=== PATIENT | male | born 1935 | race African-American/Black ===

== ENCOUNTER 2016-03-23 18:56 | Inpatient (IN) | payer MEDICARE, MEDICAID ==
[2016-03-24] MEDS ORDERED: Albuterol Sulfate 2.5 mg/3 ml Neb NEB PRN (12:34)
[2016-03-24] MEDS ORDERED: Acetaminophen 650 MG Suppository PR PRN (12:34)
[2016-03-24] MEDS ORDERED: Bisacodyl 10 MG SUPP PR PRN (12:34)
[2016-03-24] MEDS: Timolol 0.5% Ophth Soln 5 ml Bottle EA EYE SCH (22:08)
[2016-03-24] MEDS: Latanoprost 0.005% Ophth Soln 2.5 ml Bottle EA EYE SCH (22:08)
[2016-03-24] MEDS: Vancomycin HCl 1 GM in Sodium Chloride 0.9% 250 ML 250 ML IVPB SCH (22:10)
[2016-03-25] MEDS: D5 1/4 NS w/20 mEq KCL 1,000 ML IV SCH ×2 (03:39→11:58)
[2016-03-25] MEDS: Enoxaparin Sodium 40 MG/0.4 ML SYRINGE SC SCH (05:46)
[2016-03-25] MEDS: cefTRIAXone\\ROCEPHIN 1 GM in Sodium Chloride 0.9% 100 ML IVPB SCH (08:26)
[2016-03-25] MEDS: Timolol 0.5% Ophth Soln 5 ml Bottle EA EYE SCH ×2 (08:27→21:15)
[2016-03-25] MEDS ORDERED: cefTRIAXone\\ROCEPHIN 1 GM VIAL IVPB SCH (09:00)
[2016-03-25] MEDS: Vancomycin HCl 1 GM in Sodium Chloride 0.9% 250 ML 250 ML IVPB SCH ×2 (11:56→22:56)
--- NOTE | 2016-03-25 19:29 | PRG ---
DATE OF PROGRESS NOTE: 03/25/2016 SUBJECTIVE: Nurses report the patient has remained unresponsive. OBJECTIVE: The patient lying in his bed. He would open his eyes when his name was called, he was m henry, but there was no attempt to talk. He did not turn toward the [place]. His vital signs show a t emperature of 97.7, pulse 66, blood pressure 184/80, earlier was 110/56, respirations 20, O2 sat 98% on room air. His output has been on 02/17/2016, over the last 24 hours. Lungs are clear. Heart r egular rate. Sacral wound still has a moderate amount of malodorous drainage of the overlying gauze , but drainage is not as gonzalez and just has a light yellow-brown tinge, the wound bed has a deep cent ral area that probably extends down to the sacral periosteum of the bone. Base of the wound is stil l a grayish mucus. ASSESSMENT: 1. Alteration in mental status where he is unresponsive. A. Suspect this is secondary to a combination of dehydration and urinary tract infection and possible wound infection to the decubitus. B. Patient will open his eye with tactile stimulation; otherwise unresponsive as of 03/25/2016. 2. Dehydration. A. Resolved with sodium now down to 143. B. Prerenal azotemia, resolved with a GFR of 90 as of 03/24/2016. C. Complicated by unresponsiveness. 1. The patient is beginning to open his eyes now with verbal or tactile stimuli as of 03/24. 3. Advanced Parkinson's disease. A. Complicated by severe dysphagia. B. Complicated by severe generalized weakness and stiffness such that he is bed confined, requi [facility] total care. 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 4. Hypertension. 5. Coronary heart disease. 6. Status post coronary artery bypass x4 in 2008. 7. Bradycardia requiring pacemaker. 8. Diverticular disease of the colon. 9. Benign prostatic hypertrophy. 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 11. Decubitus ulcer of the sacral area. A. Stage IV decubitus. B. Probable secondary infection that is improved as of 03/24/2016. C. Wound still has necrotic gonzalez base, but is very slowly improving with wet to dry dressing; s till has moderate amount of drainage and odor is still present. 12. Undisplaced fracture of the right humeral head. Unknown when this occurred. A. No local bruising around this fracture site and the patient does not indicate any pain with movement as of 03/24/2016. 13. Code status: DNR. 14. Urinary tract infection. A. Urine culture growing Escherichia coli, colony count greater than 100,000, organism resistan t to the Levaquin, but sensitive to ceftriaxone. B. Levaquin discontinued and Rocephin started on 03/23/2016. PLAN: We will continue the IV fluids. Continue present wound care. Continue the dextrose in the I V fluids. Patient is still unable to take any form of oral feeding. Family has been a post any ent eral feedings and the patient becomes a little more alert may be able to again give a swallowing tri al. Prognosis remains still very poor.
[2016-03-25] MEDS: Latanoprost 0.005% Ophth Soln 2.5 ml Bottle EA EYE SCH (21:14)
[2016-03-26] MEDS: Enoxaparin Sodium 40 MG/0.4 ML SYRINGE SC SCH (05:57)
[2016-03-26] MEDS: D5 1/4 NS w/20 mEq KCL 1,000 ML IV SCH ×3 (06:16→19:36)
[2016-03-26 07:21] LABS: Anion Gap 16 mmol/L (10-20); BUN (Urea Nitrogen) 7 mg/dL (8.4-25.7); Calc. Creatinine Clearance 77 mL/min (70-130); Calcium 8.2 mg/dL (7.8-10.44); Carbon Dioxide 20 mmol/L (23-31); Chloride 109 mmol/L (98-107); Estimated GFR-MDRD Greater than 90; Glucose 91 mg/dL (83-110); Sodium 141 mmol/L (136-145)
[2016-03-26 07:23] LABS: #Basophils 0.1 thou/uL (0.0-0.2); #Eosinphils 0.4 thou/uL (0.0-0.7); #Lymphocytes 1.5 thou/uL (1.20-3.40); #Monocytes 0.7 thou/uL (0.11-0.59); #Neutrophils 6.6 thou/uL (1.40-6.50); %Basophils 0.6 % (0.0-1.0); %Eosinophils 4.4 % (0.0-10.0); %Lymphocytes 16.6 % (21.0-51.0); %Monocytes 7.1 % (0.0-10.0); %Neutrophils 71.4 % (42.0-75.0); Hemoglobin 13.4 g/dL (14.0-18.0); Mean Corpuscular Hemoglobin 30.4 pg (27.0-31.0); Mean Corpuscular Volume 89.2 fl (80.0-94.0); Mean Platelet Volume 6.7 fL (7.4-10.4); Platelet Count 167 thou/uL (130-400); RBC Distribution Width 12.5 % (11.5-14.5); White Blood Cell (WBC) Count 9.2 thou/uL (4.8-10.8)
[2016-03-26] MEDS: cefTRIAXone\\ROCEPHIN 1 GM in Sodium Chloride 0.9% 100 ML IVPB SCH (08:11)
[2016-03-26] MEDS: Timolol 0.5% Ophth Soln 5 ml Bottle EA EYE SCH ×2 (08:12→20:35)
[2016-03-26] MEDS: Vancomycin HCl 1 GM in Sodium Chloride 0.9% 250 ML 250 ML IVPB SCH ×2 (10:34→22:41)
--- NOTE | 2016-03-26 14:52 | PRG ---
DATE OF SERVICE: 03/26/2016 SUBJECTIVE: Yesterday, the patient's IV infiltrated and multiple attempts to restart this were unsu ccessful, eventfully IV was obtained in the right external jugular and this has been running since connie bailey. OBJECTIVE: This morning the patient with stimulation, eyes open, and he seemed to be looking around , sucking around his left index finger. His vital signs shows a temperature of 97.8, pulse 60, bloo d pressure 144/65, respirations 18, O2 saturation 98% on room air. Lungs clear. Heart, regular rat e. Mouth: Mucous membranes are moist. Sacral wound is still malodorous. There is still a moderat e discharge from the wound that is a very light gonzalez discoloration on the floor by four hours, which the fluid was absorbed. The wound bed is a little spool cleaner. There is still malodorous. LABORATORY DATA: His lab shows an H\T\H of 13.4 and 39.3, white cell count 9200, 71% segs, 17% lymp hocytes, platelet count 167. Sodium 141, potassium 4, BUN 7, creatinine 0.71. GFR greater than 90, glucose 91. ASSESSMENT: 1. Alteration in mental status where he is unresponsive. A. Suspect this is secondary to a combination of dehydration and urinary tract infection and possible wound infection to the decubitus. B. Patient open his eyes and seems now sucking on his left index finger. He seems a little bit more responsive as of 03/26/2016. 2. Dehydration. A. Resolved with sodium now down to 143. B. Prerenal azotemia, resolved with a GFR of 90 as of 03/24/2016. C. Complicated by unresponsiveness. 1. Patient continues to open his eyes with tactile stimulation and places finger in his diego th as of 03/26/2016. 3. Advanced Parkinson's disease. A. Complicated by severe dysphagia. B. Complicated by severe generalized weakness and stiffness such that he is bed confined, requi ring total care. 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 4. Hypertension. 5. Coronary heart disease. 6. Status post coronary artery bypass x4 in 2008. 7. Bradycardia requiring pacemaker. 8. Diverticular disease of the colon. 9. Benign prostatic hypertrophy. 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 11. Decubitus ulcer of the sacral area. A. Stage IV decubitus. B. Probable secondary infection that is improved as of 03/24/2016. C. Wound beginning to clean up a little better, but still has a little malodorous and still has the gonzalez mucoid base, but less as of 03/26/2016. 12. Undisplaced fracture of the right humeral head. Unknown when this occurred. A. No local bruising around this fracture site and the patient does not indicate any pain with movement as of 03/24/2016. 13. Code status: DNR. 14. Urinary tract infection. A. Urine culture growing Escherichia coli, colony count greater than 100,000, organism resistan t to the Levaquin, but sensitive to ceftriaxone. B. Levaquin discontinued and Rocephin started on 03/23/2016. PLAN: Continue the IV antibiotics. Continue present wound care. If patient continues become littl e more alert, we will have the speech therapist redo a swallow trial.
[2016-03-26] MEDS: Latanoprost 0.005% Ophth Soln 2.5 ml Bottle EA EYE SCH (20:30)
[2016-03-27] MEDS: Enoxaparin Sodium 40 MG/0.4 ML SYRINGE SC SCH (05:38)
[2016-03-27] MEDS: D5 1/4 NS w/20 mEq KCL 1,000 ML IV SCH ×3 (06:58→18:08)
[2016-03-27] MEDS: cefTRIAXone\\ROCEPHIN 1 GM in Sodium Chloride 0.9% 100 ML IVPB SCH (08:21)
[2016-03-27] MEDS: Timolol 0.5% Ophth Soln 5 ml Bottle EA EYE SCH ×2 (08:22→21:03)
[2016-03-27] MEDS: Vancomycin HCl 1 GM in Sodium Chloride 0.9% 250 ML 250 ML IVPB SCH ×2 (10:33→21:11)
--- NOTE | 2016-03-27 16:45 | PRG ---
DATE OF SERVICE: 03/27/2016 SUBJECTIVE: Speech Therapy reevaluated the patient yesterday and allowing a few ice chips. Nurses report no other problems. His IV in the right external jugular is still working well. OBJECTIVE: The patient is lying in bed. With tactile stimulation he opens his eyes. His temp is 9 7.8, pulse 60, respirations 18, O2 sat 95%, blood pressure 153/79. His lungs are clear. Heart, reg ular rate. Mouth; mucous membranes are moist. His sacral wound, the base still has a gonzalez mucoid t issue, but the surrounding tissue has cleaned up better. Overall, the wound looks a little better a nd there is less odor and drainage. ASSESSMENT: 1. Alteration in mental status where he is unresponsive. A. Suspect this is secondary to a combination of dehydration and urinary tract infection and possible wound infection to the decubitus. B. The patient will on open his eyes, and taking some ice chips as of 03/27/2016. 2. Dehydration. A. Resolved with sodium now down to 143. B. Prerenal azotemia, resolved with a GFR of 90 as of 03/24/2016. C. Complicated by unresponsiveness. 1. The patient continues to open his eyes with tactile stimulation. He has been started on ice chips as of 03/27/2016. 3. Advanced Parkinson's disease. A. Complicated by severe dysphagia. B. Complicated by severe generalized weakness and stiffness such that he is bed confined, requi ring total care. 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 4. Hypertension. 5. Coronary heart disease. 6. Status post coronary artery bypass x4 in 2008. 7. Bradycardia requiring pacemaker. 8. Diverticular disease of the colon. 9. Benign prostatic hypertrophy. 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 11. Decubitus ulcer of the sacral area. A. Stage IV decubitus. B. Probable secondary infection that is improved as of 03/24/2016. C. Wound has a little less odor, a little less drainage. Surrounding tissue is cleaning up mor e, still has gonzalez mucoid base as of 03/27/2016. 12. Undisplaced fracture of the right humeral head. Unknown when this occurred. A. No local bruising around this fracture site and the patient does not indicate any pain with movement as of 03/24/2016. 13. Code status: DNR. 14. Urinary tract infection. A. Urine culture growing Escherichia coli, colony count greater than 100,000, organism resistan t to the Levaquin, but sensitive to ceftriaxone. B. Levaquin discontinued and Rocephin started on 03/23/2016. PLAN: Continue present care. Hopefully, we will be able to advance substance by mouth. The family in the past have not wanted any type of enteral feeding. The patient's prognosis still remains juan c y poor, particularly since he is not getting adequate nutrition.
[2016-03-27] MEDS: Latanoprost 0.005% Ophth Soln 2.5 ml Bottle EA EYE SCH (21:10)
[2016-03-28] MEDS: D5 1/4 NS w/20 mEq KCL 1,000 ML IV SCH ×3 (00:43→20:32)
[2016-03-28 05:05] LABS: #Eosinphils 0.1 thou/uL (0.0-0.7); #Lymphocytes 0.8 thou/uL (1.20-3.40); #Monocytes 0.4 thou/uL (0.11-0.59); %Basophils 0.6 % (0.0-1.0); %Eosinophils 1.6 % (0.0-10.0); %Lymphocytes 12.7 % (21.0-51.0); %Monocytes 6.7 % (0.0-10.0); %Neutrophils 78.4 % (42.0-75.0); Hemoglobin 13.4 g/dL (14.0-18.0); Mean Corpuscular Hemoglobin 30.8 pg (27.0-31.0); Mean Corpuscular Volume 87.8 fl (80.0-94.0); Mean Platelet Volume 7.9 fL (7.4-10.4); Platelet Count 173 thou/uL (130-400); RBC Distribution Width 11.8 % (11.5-14.5); Red Blood Cell (RBC) Count 4.35 mill/uL (4.70-6.10); White Blood Cell (WBC) Count 6.3 thou/uL (4.8-10.8)
[2016-03-28] MEDS: Enoxaparin Sodium 40 MG/0.4 ML SYRINGE SC SCH (05:10)
[2016-03-28 05:23] LABS: Anion Gap 15 mmol/L (10-20); BUN (Urea Nitrogen) 3 mg/dL (8.4-25.7); Calc. Creatinine Clearance 86 mL/min (70-130); Calcium 8.5 mg/dL (7.8-10.44); Carbon Dioxide 22 mmol/L (23-31); Chloride 106 mmol/L (98-107); Estimated GFR-MDRD Greater than 90; Glucose 95 mg/dL (83-110); Potassium 3.5 mmol/L (3.5-5.1); Sodium 139 mmol/L (136-145)
[2016-03-28] MEDS: cefTRIAXone\\ROCEPHIN 1 GM in Sodium Chloride 0.9% 100 ML IVPB SCH (08:52)
[2016-03-28] MEDS: Timolol 0.5% Ophth Soln 5 ml Bottle EA EYE SCH ×2 (08:53→20:33)
[2016-03-28 10:25] LABS: Vancomycin, Trough 20.6 ug/mL
[2016-03-28] MEDS: Vancomycin HCl 1 GM in Sodium Chloride 0.9% 250 ML 250 ML IVPB SCH ×2 (10:57→21:58)
--- NOTE | 2016-03-28 15:28 | PRG ---
DATE OF SERVICE: 03/28/2016 SUBJECTIVE: The patient has taken a little bit of ice, but still the only response from him has bee n opening his eyes. Speech therapist will reevaluate for a swallowing screen, but I doubt that he w ill be able to progress beyond what he is doing at this time. OBJECTIVE: The patient lying in bed. When turned his eyes open. He appears comfortable. His kaylin l signs shows a temperature of 98.9, pulse 62, blood pressure was 181/77, earlier 153/79, respiratio ns 18, O2 sat 99% on room air. His lungs are clear. Heart, regular rate. The extremities have no edema. The sacral wound looks better. There is less drainage and the odor is resolving. The necro tic base is clean, there is one area that seems to extend a little deeper in the inferior aspect of the wound. The base of this had some red granulation tissue. This was probed with a Q-Tip and did not seem to tunnel any more than about 0.5 cm. This may have just been the base of the wound that i s gradually becoming more apparent as the gonzalez mucousy necrotic base is debriding. Lab shows an H\T \H of 13.4 and 38.2, WBC count 6300 with 78% segs, 13% lymphocytes, and platelet count of 173,000. Sodium 139, potassium 3.5, BUN 3, creatinine 0.65, glucose 95. ASSESSMENT: 1. Alteration in mental status where he is unresponsive. A. Suspect this is secondary to a combination of dehydration and urinary tract infection and possible wound infection to the decubitus. B. The patient will open his eyes with tactile stimulation as of 03/28/2016. 2. Dehydration. A. Resolved with sodium now down to 143. B. Prerenal azotemia, resolved with a GFR of 90 as of 03/24/2016. C. Complicated by unresponsiveness. 1. The patient will only open his eyes with tactile stimulation. He does take occasional i ce chips as of 03/28/2016. 3. Advanced Parkinson's disease. A. Complicated by severe dysphagia. B. Complicated by severe generalized weakness and stiffness such that he is bed confined, requi ring total care. 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 4. Hypertension. 5. Coronary heart disease. 6. Status post coronary artery bypass x4 in 2008. 7. Bradycardia requiring pacemaker. 8. Diverticular disease of the colon. 9. Benign prostatic hypertrophy. 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 11. Decubitus ulcer of the sacral area. A. Stage IV decubitus. B. Probable secondary infection that is improved as of 03/24/2016. C. The wound has less necrotic base and no surrounding redness and no odor, drainage less as of 03/28/2016. 12. Undisplaced fracture of the right humeral head. Unknown when this occurred. A. No local bruising around this fracture site and the patient does not indicate any pain with movement as of 03/24/2016. 13. Code status: DNR. 14. Urinary tract infection. A. Urine culture growing Escherichia coli, colony count greater than 100,000, organism resistan t to the Levaquin, but sensitive to ceftriaxone. B. Levaquin discontinued and Rocephin started on 03/23/2016. C. The patient is on day 5 of ceftriaxone as of 03/28/2015. PLAN: We will continue the IV Rocephin and vancomycin. We will recheck vancomycin trough level. C rosi present wound care. Will revisit with family about his inability to take oral feeding and a gain see what the family's wishes are in regards to enteral feeding. The patient's overall prognosi s still remains very poor, particularly with the severe dysphagia and minimal responsiveness.
[2016-03-28] MEDS: Latanoprost 0.005% Ophth Soln 2.5 ml Bottle EA EYE SCH (20:34)
[2016-03-29 05:16] LABS: #Eosinphils 0.2 thou/uL (0.0-0.7); #Lymphocytes 1.1 thou/uL (1.20-3.40); #Monocytes 0.7 thou/uL (0.11-0.59); %Basophils 0.5 % (0.0-1.0); %Eosinophils 1.7 % (0.0-10.0); %Lymphocytes 12.3 % (21.0-51.0); %Monocytes 7.5 % (0.0-10.0); Hemoglobin 14.1 g/dL (14.0-18.0); Mean Corpuscular HGB CONC 35.2 g/dL (32.0-36.0); Mean Platelet Volume 6.7 fL (7.4-10.4); Platelet Count 197 thou/uL (130-400); RBC Distribution Width 12.2 % (11.5-14.5); Red Blood Cell (RBC) Count 4.57 mill/uL (4.70-6.10)
[2016-03-29 05:23] LABS: Anion Gap 15 mmol/L (10-20); BUN (Urea Nitrogen) 3 mg/dL (8.4-25.7); Calc. Creatinine Clearance 79 mL/min (70-130); Calcium 8.6 mg/dL (7.8-10.44); Carbon Dioxide 24 mmol/L (23-31); Chloride 105 mmol/L (98-107); Estimated GFR-MDRD Greater than 90; Glucose 99 mg/dL (83-110); Potassium 3.7 mmol/L (3.5-5.1); Sodium 140 mmol/L (136-145)
[2016-03-29] MEDS: Enoxaparin Sodium 40 MG/0.4 ML SYRINGE SC SCH (05:36)
[2016-03-29] MEDS: cefTRIAXone\\ROCEPHIN 1 GM in Sodium Chloride 0.9% 100 ML IVPB SCH (08:44)
[2016-03-29] MEDS: Timolol 0.5% Ophth Soln 5 ml Bottle EA EYE SCH ×2 (08:45→20:18)
[2016-03-29] MEDS: Vancomycin HCl 1 GM in Sodium Chloride 0.9% 250 ML 250 ML IVPB SCH ×2 (10:14→22:24)
[2016-03-29] MEDS: D5 1/4 NS w/20 mEq KCL 1,000 ML IV SCH (10:14)
--- NOTE | 2016-03-29 14:45 | PRG ---
DATE OF SERVICE: 03/29/2016 SUBJECTIVE: Nurses said condition has been unchanged. OBJECTIVE: The patient is lying on his left side. His eyes are closed. He did not respond to any verbal or tactile stimuli. His vital signs shows a temperature 97.9, pulse 60, blood pressure 188/9 0, respirations 16, O2 sat 98%. Lungs are clear. Heart, regular rate. Wound, the nurses report no change. H\T\H 14.1 and 40.2, white blood cell count 9000 with 78% segs, 12% lymphocytes, platelet count of 197,000. Sodium 140, potassium 3.7, BUN to 3, creatinine 0.7, glucose 99. Vancomycin trou gh level is 20, which is appropriate. ASSESSMENT: 1. Alteration in mental status where he is unresponsive. A. Suspect this is secondary to a combination of dehydration and urinary tract infection and possible wound infection to the decubitus. B. Patient intermittently will open eyes with tactile stimulation, otherwise unresponsive as of 03/29/2016. 2. Dehydration. A. Resolved with sodium now down to 143. B. Prerenal azotemia, resolved with a GFR of 90 as of 03/24/2016. C. Complicated by unresponsiveness. 1. The patient will only open his eyes with tactile stimulation. He does take occasional i ce chips as of 03/29/2016. 3. Advanced Parkinson's disease. A. Complicated by severe dysphagia. B. Complicated by severe generalized weakness and stiffness such that he is bed confined, requi ring total care. 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 4. Hypertension. 5. Coronary heart disease. 6. Status post coronary artery bypass x4 in 2008. 7. Bradycardia requiring pacemaker. 8. Diverticular disease of the colon. 9. Benign prostatic hypertrophy. 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 11. Decubitus ulcer of the sacral area. A. Stage IV decubitus. B. Probable secondary infection that is improved as of 03/24/2016. C. The wound has less necrotic base and no surrounding redness and no odor, drainage less as of 03/28/2016, unchanged as of 03/29/2016. 12. Undisplaced fracture of the right humeral head. Unknown when this occurred. A. No local bruising around this fracture site and the patient does not indicate any pain with movement as of 03/24/2016. 13. Code status: DNR. 14. Urinary tract infection. A. Urine culture growing Escherichia coli, colony count greater than 100,000, organism resistan t to the Levaquin, but sensitive to ceftriaxone. B. Levaquin discontinued and Rocephin started on 03/23/2016. C. The patient is on 6th day of IV ceftriaxone. 15. Palliative Care as of 03/29/2016. PLAN: Yesterday, I had a long discussion with the patient's , Augusta and daughter Betty, abou t his condition and prognosis and had recommended comfort measures above all and consideration of ho spice care. The family asked many questions and then they visited with the son. Now this morning, both of them have revisited with me and said that they do not want any type of feeding tube used and they asked about palliative care as opposed to hospice care. They are very comfortable with comfor t measures and they realized that he may lose the IV and also they realized that he is not taking in nutrition orally. If his alertness improves any then he certainly can be offered again a trial of oral feeding, but at this point, it just would be too dangerous. The family is happy to have the pa tient remain here for continuation of the wound care and continuation of the IV antibiotics for the urinary tract infection and wound infection and realize that if the IV is lost that this will be sto pped and that his condition will deteriorate. The patient though will need to remain here for the c ontinued ongoing care and comfort measures. The patient will be under palliative care and prognosis is very poor.
[2016-03-29] MEDS: Latanoprost 0.005% Ophth Soln 2.5 ml Bottle EA EYE SCH (20:18)
[2016-03-30] MEDS: D5 1/4 NS w/20 mEq KCL 1,000 ML IV SCH ×3 (00:23→14:51)
[2016-03-30] MEDS: Enoxaparin Sodium 40 MG/0.4 ML SYRINGE SC SCH (05:24)
[2016-03-30] MEDS: cefTRIAXone\\ROCEPHIN 1 GM in Sodium Chloride 0.9% 100 ML IVPB SCH (08:53)
[2016-03-30] MEDS: Timolol 0.5% Ophth Soln 5 ml Bottle EA EYE SCH ×2 (08:54→21:07)
[2016-03-30] MEDS: Vancomycin HCl 1 GM in Sodium Chloride 0.9% 250 ML 250 ML IVPB SCH (11:21)
--- NOTE | 2016-03-30 18:32 | PRG ---
DATE OF SERVICE: 03/30/2016 SUBJECTIVE: Nurse report no change in patient. OBJECTIVE: On exam, patient opened his eyes when I called his name and his eyes turned toward me. I did not attempt to talk or move his extremities. His vital signs shows a temperature of 97.8; pul se 60; blood pressure 170/76, earlier 143/69; respirations 16; O2 sat 97%. Lungs are clear. Heart, regular rate. Neurologic, the patient open his eyes and looked toward me when his name was called, otherwise no movement in any of the extremities. The wound over the sacrum looks better about half of the gonzalez necrotic tissue is cleaned off of the base. There is minimal drainage and the odor is resolving. ASSESSMENT: 1. Alteration in mental status where he is unresponsive. A. Suspect this is secondary to a combination of dehydration and urinary tract infection and possible wound infection to the decubitus. B. The patient opens his eyes and look toward me when his name was called on the morning of . 2. Dehydration. A. Resolved with sodium now down to 143. B. Prerenal azotemia, resolved with a GFR of 90 as of 03/24/2016. C. Complicated by unresponsiveness. 1. The patient opens his eyes and look toward me when his name was called on the morning of 03/30/2016. 3. Advanced Parkinson's disease. A. Complicated by severe dysphagia. B. Complicated by severe generalized weakness and stiffness such that he is bed confined, requi ring total care. 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 4. Hypertension. 5. Coronary heart disease. 6. Status post coronary artery bypass x4 in 2008. 7. Bradycardia requiring pacemaker. 8. Diverticular disease of the colon. 9. Benign prostatic hypertrophy. 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 11. Decubitus ulcer of the sacral area. A. Stage IV decubitus. B. Probable secondary infection that is improved as of 03/24/2016. C. The necrotic base looks better and half of the base now is clean with minimal drainage and n o odor as of 03/30/2016. 12. Undisplaced fracture of the right humeral head. Unknown when this occurred. A. No local bruising around this fracture site and the patient does not indicate any pain with movement as of 03/24/2016. 13. Code status: DNR. 14. Urinary tract infection. A. Urine culture growing Escherichia coli, colony count greater than 100,000, organism resistan t to the Levaquin, but sensitive to ceftriaxone. B. Levaquin discontinued and Rocephin started on 03/23/2016. C. The patient is on 8th day of IV ceftriaxone as of 03/30/2016. 15. Palliative Care as of 03/29/2016. PLAN: We will complete a 10-day course of the ceftriaxone, which will complete in 2 days. We will stop the IV vancomycin. We will continue the IV fluids, continue comfort measures. Continue presen t wound care. We asked physical therapy to reevaluate patient for his ability to swallow. Prognosi s still extremely poor.
[2016-03-30] MEDS: Latanoprost 0.005% Ophth Soln 2.5 ml Bottle EA EYE SCH (21:07)
[2016-03-31] MEDS: D5 1/4 NS w/20 mEq KCL 1,000 ML IV SCH ×2 (04:06→16:53)
[2016-03-31] MEDS: Enoxaparin Sodium 40 MG/0.4 ML SYRINGE SC SCH (05:19)
[2016-03-31] MEDS: cefTRIAXone\\ROCEPHIN 1 GM in Sodium Chloride 0.9% 100 ML IVPB SCH (08:35)
[2016-03-31] MEDS: Timolol 0.5% Ophth Soln 5 ml Bottle EA EYE SCH ×2 (08:39→21:29)
--- NOTE | 2016-03-31 20:51 | PRG ---
DATE OF SERVICE: 03/31/2016 SUBJECTIVE: Nurses report no change in the patient. The patient's , Augusta, is with him this m orning. OBJECTIVE: The patient lying comfortably in bed. His eyes will open today. He did not look toward me. Otherwise, he unresponsive. His vital signs shows temperature of 98.1, pulse 66, blood pressu re 171/78, respirations 18, O2 sat 95% on room air. Lungs clear. Heart, regular rate. Wound repor costa unchanged. ASSESSMENT: 1. Alteration in mental status where he is unresponsive. A. Suspect this is secondary to a combination of dehydration and urinary tract infection and possible wound infection to the decubitus. B. The patient remains unresponsive except for opening of his eyes as of 03/30/2016. 2. Dehydration. A. Resolved with sodium now down to 143. B. Prerenal azotemia, resolved with a GFR of 90 as of 03/24/2016. C. Complicated by unresponsiveness. 1. The patient is unresponsive other than opening his eyes with verbal or tactile stimulati on as of 03/31/2016. 3. Advanced Parkinson's disease. A. Complicated by severe dysphagia. B. Complicated by severe generalized weakness and stiffness such that he is bed confined, requi ring total care. 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 4. Hypertension. 5. Coronary heart disease. 6. Status post coronary artery bypass x4 in 2008. 7. Bradycardia requiring pacemaker. 8. Diverticular disease of the colon. 9. Benign prostatic hypertrophy. 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 11. Decubitus ulcer of the sacral area. A. Stage IV decubitus. B. Probable secondary infection that is improved as of 03/24/2016. C. The necrotic base looks better and half of the base now is clean with minimal drainage and n o odor as of 03/30/2016. 12. Undisplaced fracture of the right humeral head. Unknown when this occurred. A. No local bruising around this fracture site and the patient does not indicate any pain with movement as of 03/24/2016. 13. Code status: DNR. 14. Urinary tract infection. A. Urine culture growing Escherichia coli, colony count greater than 100,000, organism resistan t to the Levaquin, but sensitive to ceftriaxone. B. Levaquin discontinued and Rocephin started on 03/23/2016. C. The patient is on 8th day of IV ceftriaxone as of 03/30/2016. 15. Palliative Care as of 03/29/2016. PLAN: Continue the IV antibiotics, Rocephin for the UTI. The patient is on his 9th of a 10 day cou rse as of 03/31/2016. Continue present wound care. Continue comfort measures. Prognosis remains s till very poor.
[2016-03-31] MEDS: Latanoprost 0.005% Ophth Soln 2.5 ml Bottle EA EYE SCH (21:29)
[2016-04-01] MEDS: D5 1/4 NS w/20 mEq KCL 1,000 ML IV SCH ×3 (05:35→21:30)
[2016-04-01] MEDS: Enoxaparin Sodium 40 MG/0.4 ML SYRINGE SC SCH (06:16)
[2016-04-01] MEDS: cefTRIAXone\\ROCEPHIN 1 GM in Sodium Chloride 0.9% 100 ML IVPB SCH (08:26)
[2016-04-01] MEDS: Timolol 0.5% Ophth Soln 5 ml Bottle EA EYE SCH ×2 (08:26→20:10)
[2016-04-01] MEDS: Latanoprost 0.005% Ophth Soln 2.5 ml Bottle EA EYE SCH (20:13)
[2016-04-02] MEDS: Enoxaparin Sodium 40 MG/0.4 ML SYRINGE SC SCH (05:12)
[2016-04-02 07:11] LABS: #Eosinphils 0.1 thou/uL (0.0-0.7); #Lymphocytes 1.2 thou/uL (1.20-3.40); #Monocytes 0.4 thou/uL (0.11-0.59); #Neutrophils 5.4 thou/uL (1.40-6.50); %Basophils 0.5 % (0.0-1.0); %Eosinophils 1.3 % (0.0-10.0); %Lymphocytes 16.6 % (21.0-51.0); %Monocytes 5.7 % (0.0-10.0); %Neutrophils 75.8 % (42.0-75.0); Hemoglobin 13.3 g/dL (14.0-18.0); Mean Corpuscular HGB CONC 34.5 g/dL (32.0-36.0); Mean Corpuscular Hemoglobin 30.4 pg (27.0-31.0); Mean Corpuscular Volume 88.2 fl (80.0-94.0); Mean Platelet Volume 6.4 fL (7.4-10.4); Platelet Count 215 thou/uL (130-400); RBC Distribution Width 11.9 % (11.5-14.5); Red Blood Cell (RBC) Count 4.35 mill/uL (4.70-6.10); White Blood Cell (WBC) Count 7.2 thou/uL (4.8-10.8)
[2016-04-02 07:29] LABS: Anion Gap 16 mmol/L (10-20); BUN (Urea Nitrogen) 4 mg/dL (8.4-25.7); Calc. Creatinine Clearance 79 mL/min (70-130); Calcium 8.8 mg/dL (7.8-10.44); Carbon Dioxide 22 mmol/L (23-31); Chloride 103 mmol/L (98-107); Estimated GFR-MDRD Greater than 90; Glucose 101 mg/dL (83-110); Potassium 3.7 mmol/L (3.5-5.1); Sodium 137 mmol/L (136-145)
[2016-04-02] MEDS: Timolol 0.5% Ophth Soln 5 ml Bottle EA EYE SCH ×2 (08:20→20:19)
[2016-04-02] MEDS: D5 1/4 NS w/20 mEq KCL 1,000 ML IV SCH ×2 (10:03→23:07)
--- NOTE | 2016-04-02 14:40 | PRG ---
DATE OF SERVICE: 04/02/2016 SUBJECTIVE: Nurses report no change in the patient. He still opens his eyes, occasionally yawns, b ut otherwise unresponsive. OBJECTIVE: The patient lying in his bed. His eyes are open, he appears comfortable in no distress. His temp is 98.9, pulse 60, respirations 16, O2 sat 95%, blood pressure 170/70. Lungs are clear. Heart, regular rate. Extremities, no edema. The wound over the sacrum has a little bit more drain age on the overlying gauze, there is just a mild odor. The wound bed is cleaning up better. There is no deep tunneling. There is some mild undermining. H\T\H 13.3 and 38.4, WBC count 7200 with 76% segs, 17% lymphocytes. Sodium 137, potassium 3.7, BUN 4, creatinine 0.71, glucose 101. ASSESSMENT: 1. Alteration in mental status where he is unresponsive. A. Suspect this is secondary to a combination of dehydration and urinary tract infection and possible wound infection to the decubitus. B. The patient remains unresponsive except for opening of his eyes as of 04/02/2016. 2. Dehydration. A. Resolved with sodium now down to 143. B. Prerenal azotemia, resolved with a GFR of 90 as of 03/24/2016. C. Complicated by unresponsiveness. 1. The patient is unresponsive other than opening his eyes with verbal or tactile stimulati on as of 04/02/2016. 3. Advanced Parkinson's disease. A. Complicated by severe dysphagia. B. Complicated by severe generalized weakness and stiffness such that he is bed confined, requi ring total care. 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 4. Hypertension. 5. Coronary heart disease. 6. Status post coronary artery bypass x4 in 2008. 7. Bradycardia requiring pacemaker. 8. Diverticular disease of the colon. 9. Benign prostatic hypertrophy. 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 11. Decubitus ulcer of the sacral area. A. Stage IV decubitus. B. Probable secondary infection that is improved as of 03/24/2016. C. The necrotic base continues to cleanup with the wet to dry dressing as of 04/02/2016. 12. Undisplaced fracture of the right humeral head. Unknown when this occurred. A. No local bruising around this fracture site and the patient does not indicate any pain with movement as of 03/24/2016. 13. Code status: DNR. 14. Urinary tract infection. A. Urine culture growing Escherichia coli, colony count greater than 100,000, organism resistan t to the Levaquin, but sensitive to ceftriaxone. B. Levaquin discontinued and Rocephin started on 03/23/2016. C. The patient has completed a 10 day course of IV ceftriaxone as of 04/01/2016. . 15. Palliative Care as of 03/29/2016. PLAN: The patient remains unresponsive other than opening his eyes and is not a candidate for any o ral feeding due to aspiration risk. His family does not want any type of enteral feeding including nasogastric and PEG feeding. We will continue the IV fluids with dextrose and continue comfort gabi ures and wound care. Will stop the IV Rocephin. Prognosis remains very poor. We will stop the Ally enox since the patient is under palliative care.
[2016-04-02] MEDS: Latanoprost 0.005% Ophth Soln 2.5 ml Bottle EA EYE SCH (20:18)
[2016-04-03] MEDS: Timolol 0.5% Ophth Soln 5 ml Bottle EA EYE SCH ×2 (08:19→20:08)
[2016-04-03] MEDS: D5 1/4 NS w/20 mEq KCL 1,000 ML IV SCH (11:45)
[2016-04-03] MEDS: Latanoprost 0.005% Ophth Soln 2.5 ml Bottle EA EYE SCH (20:08)
[2016-04-04] MEDS: D5 1/4 NS w/20 mEq KCL 1,000 ML IV SCH ×2 (00:52→14:15)
[2016-04-04] MEDS: Timolol 0.5% Ophth Soln 5 ml Bottle EA EYE SCH ×2 (08:29→20:40)
--- NOTE | 2016-04-04 10:45 | PRG ---
DATE OF SERVICE: 04/04/2016 SUBJECTIVE: The nurses said the patient was much more alert yesterday and also this morning. He campbell s not attempted to speak and does not moving any of his extremities. Wound Care has been going well . Wound is slowly improving. OBJECTIVE: The patient lying in bed, sitting upright at about 45 degrees. His eyes are open. He i s looking around. His vital signs show temperature 97.7, pulse 60, respirations 20, O2 saturation 9 7%, blood pressure 183/83. His lungs are clear. Heart, regular rate. Wound gradually improving. Extremities; no edema. ASSESSMENT: 1. Alteration in mental status where he is unresponsive. A. Suspect this is secondary to a combination of dehydration and urinary tract infection and possible wound infection to the decubitus. B. The patient's eyes are open. He is looking around, otherwise not responsive as of 04/04/2016 . 2. Dehydration. A. Resolved with sodium now down to 143. B. Prerenal azotemia, resolved with a GFR of 90 as of 03/24/2016. C. Complicated by unresponsiveness. 1. The patient's eyes are open. He is looking around as of 04/04/2016. 3. Advanced Parkinson's disease. A. Complicated by severe dysphagia. B. Complicated by severe generalized weakness and stiffness such that he is bed confined, requi ring total care. 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 4. Hypertension. 5. Coronary heart disease. 6. Status post coronary artery bypass x4 in 2008. 7. Bradycardia requiring pacemaker. 8. Diverticular disease of the colon. 9. Benign prostatic hypertrophy. 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 11. Decubitus ulcer of the sacral area. A. Stage IV decubitus. B. Probable secondary infection that is improved as of 03/24/2016. C. The necrotic base continues to cleanup with the wet to dry dressing as of 04/02/2016. 12. Undisplaced fracture of the right humeral head. Unknown when this occurred. A. No local bruising around this fracture site and the patient does not indicate any pain with movement as of 03/24/2016. 13. Code status: DNR. 14. Urinary tract infection. A. Urine culture growing Escherichia coli, colony count greater than 100,000, organism resistan t to the Levaquin, but sensitive to ceftriaxone. B. Levaquin discontinued and Rocephin started on 03/23/2016. C. The patient has completed a 10 day course of IV ceftriaxone as of 04/01/2016. . 15. Palliative Care as of 03/29/2016. PLAN: Continue comfort measures. Continue wound care. Continue fluids. We will retry swallow yasir luation to see if he is able to take any type of oral nutrition or water.
[2016-04-04] MEDS: Latanoprost 0.005% Ophth Soln 2.5 ml Bottle EA EYE SCH (20:40)
[2016-04-05] MEDS: D5 1/4 NS w/20 mEq KCL 1,000 ML IV SCH ×2 (03:56→15:47)
[2016-04-05] MEDS: Timolol 0.5% Ophth Soln 5 ml Bottle EA EYE SCH ×2 (08:35→20:46)
[2016-04-05] MEDS: Latanoprost 0.005% Ophth Soln 2.5 ml Bottle EA EYE SCH (20:46)
[2016-04-05] MEDS: Clotrimazole 1% Cream 15 GM TUBE TOP PRN (20:47)
[2016-04-06] MEDS: D5 1/4 NS w/20 mEq KCL 1,000 ML IV SCH (05:24)
[2016-04-06] MEDS: Timolol 0.5% Ophth Soln 5 ml Bottle EA EYE SCH ×2 (08:40→22:18)
--- NOTE | 2016-04-06 10:43 | PRG ---
DATE OF SERVICE: 04/06/2016 SUBJECTIVE: Nurses report no change in the patient's condition. The patient is still not able to t blake any type of oral nutrition or fluids. He has remained unresponsive except for occasionally open ing his eyes with stimulation during patient care. His wounds are gradually looking a little better . OBJECTIVE: The patient is lying in bed, unresponsive to verbal stimuli. Vital signs show temperatu re 97.1, pulse 60, blood pressure 134/60, respirations 16, O2 sat 97% on room air. Lungs are clear. Heart, regular rate. Wounds unchanged. Neurologic; unresponsive. ASSESSMENT: 1. Alteration in mental status where he is unresponsive. A. Suspect this is secondary to a combination of dehydration and urinary tract infection and possible wound infection to the decubitus. B. Remains unresponsive except for opening his eyes with tactile stimulation as of 04/06/2016. 2. Dehydration. A. Resolved with sodium now down to 143. B. Prerenal azotemia, resolved with a GFR of 90 as of 03/24/2016. C. Complicated by unresponsiveness. 1. The patient will open his eyes with tactile stimulation as of 04/06/2016. 3. Advanced Parkinson's disease. A. Complicated by severe dysphagia. B. Complicated by severe generalized weakness and stiffness such that he is bed confined, requi ring total care. 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 4. Hypertension. 5. Coronary heart disease. 6. Status post coronary artery bypass x4 in 2008. 7. Bradycardia requiring pacemaker. 8. Diverticular disease of the colon. 9. Benign prostatic hypertrophy. 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 11. Decubitus ulcer of the sacral area. A. Stage IV decubitus. B. Probable secondary infection that is improved as of 03/24/2016. C. The necrotic base continues to cleanup with the wet to dry dressing as of 04/06/2016. 12. Undisplaced fracture of the right humeral head. Unknown when this occurred. A. No local bruising around this fracture site and the patient does not indicate any pain with movement as of 03/24/2016. 13. Code status: DNR. 14. Urinary tract infection. A. Urine culture growing Escherichia coli, colony count greater than 100,000, organism resistan t to the Levaquin, but sensitive to ceftriaxone. B. Levaquin discontinued and Rocephin started on 03/23/2016. C. The patient has completed a 10 day course of IV ceftriaxone as of 04/01/2016. 15. Palliative Care as of 03/29/2016. PLAN: The patient's condition is really unchanged. Prognosis remains very poor with really no expe ctation that he will improve. We will continue comfort measures. If he loses his IV site he will h ave no access for any fluid or nutrition and since he is not able to be fed orally and the family do es not want any type of enteral feeding, when this happens suspect his condition will deteriorate ra pidly.
[2016-04-06] MEDS: Dextrose 5 % And 0.9 % NaCl 1,000 ML IV SCH (14:57)
[2016-04-06] MEDS: Latanoprost 0.005% Ophth Soln 2.5 ml Bottle EA EYE SCH (22:18)
[2016-04-06] MEDS: Clotrimazole 1% Cream 15 GM TUBE TOP PRN (22:19)
[2016-04-07] MEDS: Dextrose 5 % And 0.9 % NaCl 1,000 ML IV SCH ×2 (02:43→19:21)
[2016-04-07] MEDS: Timolol 0.5% Ophth Soln 5 ml Bottle EA EYE SCH ×2 (08:35→19:22)
--- NOTE | 2016-04-07 12:02 | PRG ---
DATE OF SERVICE: 04/07/2016. SUBJECTIVE: The patient remains unresponsive and IV site has maintained, his is with him this morning and said that he says has been very comfortable and everybody has been extremely nice to jose m mariee and herself. OBJECTIVE: GENERAL: The patient lying in bed, eyes closed, did not respond to verbal stimuli. VITAL SIGNS: Shows a temperature of 98.2, pulse 60, respirations 16, O2 saturation 97%, blood press ure 163/78. LUNGS: Clear. HEART: Regular rate. WOUND: Reported is unchanged. ASSESSMENT: 1. Alteration in mental status where he is unresponsive. A. Suspect this is secondary to a combination of dehydration and urinary tract infection and possible wound infection to the decubitus. B. Remains unresponsive as of 04/07/2016. 2. Dehydration. A. Resolved with sodium now down to 143. B. Prerenal azotemia, resolved with a GFR of 90 as of 03/24/2016. C. Complicated by unresponsiveness. 1. The patient will open his eyes with tactile stimulation as of 04/07/2016. 3. Advanced Parkinson's disease. A. Complicated by severe dysphagia. B. Complicated by severe generalized weakness and stiffness such that he is bed confined, requi ring total care. 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 4. Hypertension. 5. Coronary heart disease. 6. Status post coronary artery bypass x4 in 2008. 7. Bradycardia requiring pacemaker. 8. Diverticular disease of the colon. 9. Benign prostatic hypertrophy. 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 11. Decubitus ulcer of the sacral area. A. Stage IV decubitus. B. Probable secondary infection that is improved as of 03/24/2016. C. The necrotic base continues to cleanup with the wet to dry dressing as of 04/06/2016. 12. Undisplaced fracture of the right humeral head. Unknown when this occurred. A. No local bruising around this fracture site and the patient does not indicate any pain with movement as of 03/24/2016. 13. Code status: DNR. 14. Urinary tract infection. A. Urine culture growing Escherichia coli, colony count greater than 100,000, organism resistan t to the Levaquin, but sensitive to ceftriaxone. B. Levaquin discontinued and Rocephin started on 03/23/2016. C. The patient has completed a 10 day course of IV ceftriaxone as of 04/01/2016. 15. Palliative Care as of 03/29/2016. PLAN: The patient's condition is of gradual continued to decline and we will continue supportive co mfort measures and wound care.
[2016-04-07] MEDS: Latanoprost 0.005% Ophth Soln 2.5 ml Bottle EA EYE SCH (19:24)
[2016-04-08] MEDS: Timolol 0.5% Ophth Soln 5 ml Bottle EA EYE SCH ×2 (08:30→20:55)
[2016-04-08] MEDS: Dextrose 5 % And 0.9 % NaCl 1,000 ML IV SCH (12:12)
[2016-04-08] MEDS: Latanoprost 0.005% Ophth Soln 2.5 ml Bottle EA EYE SCH (20:55)
[2016-04-08] MEDS: Clotrimazole 1% Cream 15 GM TUBE TOP PRN (20:55)
[2016-04-09] MEDS: Dextrose 5 % And 0.9 % NaCl 1,000 ML IV SCH (04:30)
[2016-04-09] MEDS: Timolol 0.5% Ophth Soln 5 ml Bottle EA EYE SCH ×2 (08:13→20:06)
[2016-04-09] MEDS ORDERED: Dextrose 5 % And 0.9 % NaCl 1000 ml Bag ONE (08:22)
[2016-04-09] MEDS ORDERED: D5 ONE (08:22)
[2016-04-09] MEDS ORDERED: Sodium Chloride Irrig Solution 250 ML BOT ONE (08:22)
[2016-04-09] MEDS ORDERED: 1/4 NS W ONE (08:22)
[2016-04-09] MEDS ORDERED: KCL ONE (08:22)
--- NOTE | 2016-04-09 18:03 | PRG ---
DATE OF SERVICE: 04/09/2016 SUBJECTIVE: Nurses said the patient has seemed to have been comfortable. His IV site has been lost , not able to be restarted. OBJECTIVE: The patient lying in bed. His eyes are open. His and daughter are with him. He a ppears comfortable. His temperature is 98, pulse 61, blood pressure 128/63, respirations 20, O2 sat uration 97%. Lungs clear. Heart, regular rate. ASSESSMENT: 1. Alteration in mental status where he is unresponsive. A. Suspect this is secondary to a combination of dehydration and urinary tract infection and possible wound infection to the decubitus. B. Remains unresponsive other than opening his eyes periodically on 04/09/2016. 2. Dehydration. A. Resolved with sodium now down to 143. B. Prerenal azotemia, resolved with a GFR of 90 as of 03/24/2016. C. Complicated by unresponsiveness, but intermittently will open eyes, look around as of 2016. 3. Advanced Parkinson's disease. A. Complicated by severe dysphagia. B. Complicated by severe generalized weakness and stiffness such that he is bed confined, requi ring total care. 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 4. Hypertension. 5. Coronary heart disease. 6. Status post coronary artery bypass x4 in 2008. 7. Bradycardia requiring pacemaker. 8. Diverticular disease of the colon. 9. Benign prostatic hypertrophy. 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 11. Decubitus ulcer of the sacral area. A. Stage IV decubitus. B. Probable secondary infection that is improved as of 03/24/2016. C. The necrotic base continues to cleanup with the wet to dry dressing as of 04/09/2016. 12. Undisplaced fracture of the right humeral head. Unknown when this occurred. A. No local bruising around this fracture site and the patient does not indicate any pain with movement as of 03/24/2016. 13. Code status: DNR. 14. Urinary tract infection. A. Urine culture growing Escherichia coli, colony count greater than 100,000, organism resistan t to the Levaquin, but sensitive to ceftriaxone. B. Levaquin discontinued and Rocephin started on 03/23/2016. C. The patient has completed a 10 day course of IV ceftriaxone as of 04/01/2016. 15. Palliative Care as of 03/29/2016. PLAN: The patient lost his IV site, not able to be restarted. He still cannot safely take any nutr ition or fluids by mouth and family does not want any type of enteral feeding. His care is for comf ort and palliative. With the loss of the IV his condition will probably deteriorate rapidly. Will order morphine in the event of restlessness or pain.
[2016-04-09] MEDS: Latanoprost 0.005% Ophth Soln 2.5 ml Bottle EA EYE SCH (20:07)
[2016-04-09] MEDS: Clotrimazole 1% Cream 15 GM TUBE TOP PRN (20:07)
--- NOTE | 2016-04-10 08:36 | DIS ---
FINAL DIAGNOSES: 1. Alteration in mental status where he is unresponsive. A. Secondary to dehydration, urinary tract infection and sacral decubitus wound infection. B. Remains unresponsive except for opening his eyes with verbal or tactile stimuli as of 04/10/2016. 2. Dehydration. A. Resolved with sodium now down to 143. B. Prerenal azotemia, resolved with a GFR of 90 as of 03/24/2016. C. Complicated by unresponsiveness, but intermittently will open eyes, look around as of 04/09/2016. 3. Advanced Parkinson's disease. A. Complicated by severe dysphagia. B. Complicated by severe generalized weakness and stiffness leaving him bed confined and requiring total care. 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 4. Hypertension. 5. Coronary heart disease. 6. Status post coronary artery bypass x4 in 2008. 7. Bradycardia requiring pacemaker. 8. Diverticular disease of the colon. 9. Benign prostatic hypertrophy. 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 11. Decubitus ulcer of the sacral area. A. Stage IV decubitus. B. Probable secondary infection that is improved as of 03/24/2016. C. Wound infection has resolved and the wound is clean as of 04/10/2015. 12. Undisplaced fracture of the right humeral head. Unknown when this occurred. A. No local bruising around this fracture site and the patient does not indicate any pain with movement as of 03/24/2016. 13. Code status: DNR. 14. Urinary tract infection. A. Urine culture growing Escherichia coli, colony count greater than 100, 000, organism resistant to the Levaquin, but sensitive to ceftriaxone. B. Levaquin discontinued and Rocephin started on 03/23/2016. C. The patient has completed a 10 day course of IV ceftriaxone as of 2016. 15. Palliative Care as of 03/29/2016. SUMMARY: The patient is an 81-year-old Jeremie male who has a history of advanced Parkinson's disease complicated by dysphagia, severe weakness and stiffness that has left him bed confined requiring total care and by Parkinson' s dementia. Additionally, he has hypertension, coronary heart disease for which he underwent bypass x4 in 2008. He has some bradycardia for which he has a pacemaker. The patient had a decubitus of the sacral area that he has had for many weeks that has not been healing. The patient was referred to the emergency room on the evening of 03/20/2016 because he was not responsive and he had quit eating or taking any oral fluids and he also had a fever. The patient was evaluated initially at the emergency room and found to be severely dehydrated with hypernatremia and prerenal azotemia. The chest x-ray was clear. He had evidence of a urinary tract infection. He also had a stage IV decubitus over the sacral area with necrotic base that was malodorous with drainage. There was no surrounding redness nor areas of fluctuance, but it appeared the wound was infected. Neurologically, he was not responsive. The patient was admitted to the hospital in very poor condition with very poor prognosis. He was not eating or taking any fluids. He was unresponsive with a urinary tract infection and infection of the sacral wound and severely dehydrated as a result of inability to eat. Before the family had not wanted any type of enteral feeding, and he does have a DNR code status. HOSPITAL COURSE: The patient initially was admitted to the hospital and started on IV fluids with dextrose to provide some nutrition. Over the next few days, the hypernatremia resolved and the prerenal azotemia resolved. He was also placed on IV ceftriaxone and Levaquin for the wound infection and also for the urinary tract infection. His blood cultures had no growth. His urine culture grew E. coli, colony count greater than 100,000 and organism was resistant to the Levaquin which he was placed on upon admission, but sensitive to ceftriaxone. The Levaquin was switched to ceftriaxone and he received a 10 day course of the ceftriaxone for the UTI. He also had a catheter in his bladder, placed to manage his output and also prevent maceration of the sacral decubitus. The cultures from the sacral decubitus grew multiple organisms. The wound clean improved. The patient was moved to extended care on 03/24/2016 for continuation of IV fluids and for the antibiotics and for wound care. While in extended care, he completed a 10 day course of the ceftriaxone and the vancomycin was stopped. His fluids were continued with dextrose and normal saline. The wound over the sacrum gradually cleaned up to where it had less odor, less drainage, but the wound was a stage IV, and the base was necrotic, this cleaned up though with the use of wet to dry dressings. The patient's initial unresponsiveness that was felt to be secondary to an individual with advanced Parkinson's disease and with the acute illness of the dehydration and urinary tract infection, wound infection, the patient's alertness improved only to where he would open his eyes with tactile or verbal stimulation. Occasionally, he would look at an individual, but never could move any of the extremities or cooperate. He was not able to swallow and was not able to take any type of oral fluids or nutrition. I again discussed with the family, they reaffirmed that they did not want any enteral feeding. Further discussion with the family indicated that they understood that Willian's condition was one of deterioration and that he would not improve, they were comfortable with shifting to palliative management. Fluids were continued, once the IV infiltrated and could not be restarted the family was comfortable with the discontinuation of the IV fluids. I anticipate that the patient's condition will be one of pretty rapid decline now that after the loss of the IV with the source of the fluids and a little bit of dextrose. The family has opted to return to the assisted as of 04/10/2016 for palliative management only. The patient was given the option for hospice care, but they felt financially it would be best just to return to the assisted only with palliative care. The patient was discharged to the [facility] on 04/10/2016 for palliative management. He is not able to swallow and cannot receive any fluids or nutrition orally and family does not want any type of enteral feeding. He will be provided morphine for sublingual use in the event of any discomfort or pain, or restlessness. Will continue the wound care and will continue the Middleton catheter. Family has elected to stay in the hospital under extended care after hospital received permission from [employer] for coverage of his co pay for 30 days. Discharged cancelled. DISPOSITION: DIET: N.p.o. The patient is not able to swallow and is a high risk for aspiration with any fluids or nutrition offered orally. Family does not want any type of enteral feeding. ACTIVITIES: Air flotation mattress, turn q.2 h. Position for comfort, indwelling Middleton catheter. WOUND CARE: The wound should be dressed daily, gently cleaning with saline, apply wet to dry dressing and cover with dry gauze and dressing. MEDICATIONS: Roxanol 20 mg per mL half to 1 mL sublingual every 2 hours as needed for pain or restlessness. Ativan 1 mg sublingual every 4 hours as needed for restlessness, acetaminophen 650 mg suppository per rectum every 4 hours as needed for fever, Xalatan 0.005% 1 drop in each eye at bedtime, Timoptic 0.5 mg each eye twice a day. CODE STATUS: DNR. MTDD
[2016-04-10] MEDS: Timolol 0.5% Ophth Soln 5 ml Bottle EA EYE SCH ×2 (09:33→20:26)
[2016-04-10] MEDS: Latanoprost 0.005% Ophth Soln 2.5 ml Bottle EA EYE SCH (20:25)
[2016-04-10] MEDS: Clotrimazole 1% Cream 15 GM TUBE TOP PRN (20:27)
[2016-04-11] MEDS: Timolol 0.5% Ophth Soln 5 ml Bottle EA EYE SCH ×2 (08:47→20:26)
--- NOTE | 2016-04-11 09:19 | PRG ---
DATE OF SERVICE: 04/11/2016 SUBJECTIVE: Yesterday arrangements had been made for the patient's transfer. The patient had compl eted his 20 days of group home that Medicare will cover. The patient did not have available in surance to cover the coinsurance, and so family was receptive and willing to go back to [facility] to avoid that expense that they could not afford. The hospital was able to obtain permission from [facility] for coverage of the coinsurance for the next 30 days and family was happy with this and electe d to remain here under skilled care for continuation of palliative care and wound care. The dischar ge was canceled. Nurses report no change in the patient. OBJECTIVE: The patient is lying in bed. He is unresponsive. He appears comfortable. Lungs are cl ear. Heart, regular rate. Wound unchanged. ASSESSMENT: 1. Alteration in mental status where he is unresponsive. A. Secondary to dehydration, urinary tract infection and sacral decubitus wound infection. B. Remains unresponsive except for occasionally open his eyes as of 04/11/2016. 2. Dehydration. A. Resolved with sodium now down to 143. B. Prerenal azotemia, resolved with a GFR of 90 as of 03/24/2016. C. Complicated by unresponsiveness, but intermittently will open eyes, look around as of 2016. 3. Advanced Parkinson's disease. A. Complicated by severe dysphagia. B. Complicated by severe generalized weakness and stiffness leaving him bed confined and requir ing total care. 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 4. Hypertension. 5. Coronary heart disease. 6. Status post coronary artery bypass x4 in 2008. 7. Bradycardia requiring pacemaker. 8. Diverticular disease of the colon. 9. Benign prostatic hypertrophy. 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 11. Decubitus ulcer of the sacral area. A. Stage IV decubitus. B. Probable secondary infection that is improved as of 03/24/2016. C. Wound infection has resolved and the wound is clean as of 04/10/2015. 12. Undisplaced fracture of the right humeral head. Unknown when this occurred. A. No local bruising around this fracture site and the patient does not indicate any pain with movement as of 03/24/2016. 13. Code status: DNR. 14. Urinary tract infection. A. Urine culture growing Escherichia coli, colony count greater than 100,000, organism resistan t to the Levaquin, but sensitive to ceftriaxone. B. Levaquin discontinued and Rocephin started on 03/23/2016. C. The patient has completed a 10 day course of IV ceftriaxone as of 04/01/2016. 15. A. The patient does not appear in any distress or pain as of 04/11/2017. PLAN: Continue palliative management and wound care. The patient not taking any nutrition due to h is dysphagia and unresponsiveness. The family does not want any feeding tube. The patient is here in terminal care.
[2016-04-11] MEDS: Latanoprost 0.005% Ophth Soln 2.5 ml Bottle EA EYE SCH (20:26)
[2016-04-11] MEDS: Clotrimazole 1% Cream 15 GM TUBE TOP PRN (20:27)
[2016-04-11] MEDS: Morphine Sulfate 10 mg/0.5 ml Oral Syringe SL PRN (21:12)
[2016-04-12] MEDS: Timolol 0.5% Ophth Soln 5 ml Bottle EA EYE SCH ×2 (08:24→19:37)
[2016-04-12] MEDS: Latanoprost 0.005% Ophth Soln 2.5 ml Bottle EA EYE SCH (19:37)
[2016-04-13] MEDS: Timolol 0.5% Ophth Soln 5 ml Bottle EA EYE SCH ×2 (08:13→20:49)
--- NOTE | 2016-04-13 09:12 | PRG ---
DATE OF SERVICE: 04/13/2016 SUBJECTIVE: The nurses report no change. OBJECTIVE: The patient is lying in bed, unresponsive. He did not open his eyes even with verbal an d tactile stimuli. His vital signs show a temperature of 98.8, pulse 60, blood pressure 125/56, res pirations 18, O2 sat 94% on room air. His lungs were clear. Heart, regular rate. Wound unchanged. ASSESSMENT: 1. Alteration in mental status where he is unresponsive. A. Secondary to dehydration, urinary tract infection and sacral decubitus wound infection. B. Remains unresponsive as of 04/13/2016. 2. Dehydration. A. Resolved with sodium now down to 143. B. Prerenal azotemia, resolved with a GFR of 90 as of 03/24/2016. C. Complicated by unresponsiveness, but intermittently will open eyes, look around as of 2016. 3. Advanced Parkinson's disease. A. Complicated by severe dysphagia. B. Complicated by severe generalized weakness and stiffness leaving him bed confined and requir ing total care. 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 4. Hypertension. 5. Coronary heart disease. 6. Status post coronary artery bypass x4 in 2008. 7. Bradycardia requiring pacemaker. 8. Diverticular disease of the colon. 9. Benign prostatic hypertrophy. 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 11. Decubitus ulcer of the sacral area. A. Stage IV decubitus. B. Probable secondary infection that is improved as of 03/24/2016. C. Wound infection has resolved and the wound is clean as of 04/13/2015. 12. Undisplaced fracture of the right humeral head. Unknown when this occurred. A. No local bruising around this fracture site and the patient does not indicate any pain with movement as of 03/24/2016. 13. Code status: DNR. 14. Urinary tract infection. A. Urine culture growing Escherichia coli, colony count greater than 100,000, organism resistan t to the Levaquin, but sensitive to ceftriaxone. B. Levaquin discontinued and Rocephin started on 03/23/2016. C. The patient has completed a 10 day course of IV ceftriaxone as of 04/01/2016. 15. Palliative comfort care. PLAN: The patient's condition is one of gradual deterioration. He is not able to take any nutritio n or fluids orally and the family does not want any enteral feeding. His condition continues to dec line. We will continue comfort measures.
[2016-04-13] MEDS: Latanoprost 0.005% Ophth Soln 2.5 ml Bottle EA EYE SCH (20:50)
[2016-04-14] MEDS: Timolol 0.5% Ophth Soln 5 ml Bottle EA EYE SCH ×2 (08:36→20:23)
--- NOTE | 2016-04-14 18:28 | PRG ---
DATE OF PROGRESS NOTE: 04/14/2016 SUBJECTIVE: Nurses said that patient has remained unresponsive, unable to take any nutrition or flu ids by mouth with his unresponsive state though has seemed very comfortable. On his family, a large family and extended family is in the room with him along with his , [place]. Patient appears ve ry comfortable. He did not respond to tactile or verbal stimuli. His mouth becoming a little dryer . His lungs were clear with a little mild upper airway congestion. Heart regular rate. ASSESSMENT: Patient's condition remains unresponsive and unable to take in any fluid nor nutrition. His condition is gradually deteriorating. We will continue comfort measures. I visited with sergo bello's family and his and they are very content with the care that he is receiving.
[2016-04-14] MEDS: Latanoprost 0.005% Ophth Soln 2.5 ml Bottle EA EYE SCH (20:23)
[2016-04-15] MEDS: Timolol 0.5% Ophth Soln 5 ml Bottle EA EYE SCH ×2 (09:20→21:17)
[2016-04-15] MEDS: Latanoprost 0.005% Ophth Soln 2.5 ml Bottle EA EYE SCH (21:17)
[2016-04-16] MEDS: Timolol 0.5% Ophth Soln 5 ml Bottle EA EYE SCH ×2 (08:10→20:53)
--- NOTE | 2016-04-16 08:55 | PRG ---
DATE OF SERVICE: 04/16/2016 SUBJECTIVE: The patient's s condition has been unchanged. Nurses report no change. OBJECTIVE: The patient is lying in bed, unresponsive, did not open his eyes during the exam or to a ny verbal stimulation. His mouth is becoming a little dry. Skin turgor diminished and his lungs campbell ve some coarse expiratory breath sounds from the upper airways. His condition continues to deteriorate. He still remains unable to take any type of fluid or nutrit ion. Will continue comfort care only.
[2016-04-16] MEDS ORDERED: Sodium Chloride Irrig Solution 250 ML BOT ONE (13:45)
[2016-04-16] MEDS: Latanoprost 0.005% Ophth Soln 2.5 ml Bottle EA EYE SCH (20:53)
[2016-04-16] MEDS: Clotrimazole 1% Cream 15 GM TUBE TOP PRN (20:55)
[2016-04-17] MEDS: Timolol 0.5% Ophth Soln 5 ml Bottle EA EYE SCH ×2 (09:09→20:43)
[2016-04-17] MEDS: Morphine Sulfate 10 mg/0.5 ml Oral Syringe SL PRN (09:13)
[2016-04-17] MEDS: Latanoprost 0.005% Ophth Soln 2.5 ml Bottle EA EYE SCH (20:43)
[2016-04-18] MEDS: Timolol 0.5% Ophth Soln 5 ml Bottle EA EYE SCH ×2 (08:25→20:34)
--- NOTE | 2016-04-18 08:49 | PRG ---
DATE OF SERVICE: 04/18/2016 SUBJECTIVE: The nurses said patient has remained unresponsive. He is now starting to have longer a pneic spells and it seemed like they are getting more frequent and longer intervals. At present he is unresponsive with periods of apnea. His lungs are clear. Mouth, mucous membranes are becoming d ry, skin turgor poor. ASSESSMENT: The patient's condition is continuing to deteriorate where it appears that his is close. We will continue comfort measures only.
[2016-04-18 18:44] VITALS: BMI 18.1
[2016-04-18] MEDS: Latanoprost 0.005% Ophth Soln 2.5 ml Bottle EA EYE SCH (20:34)
[2016-04-19] MEDS: Timolol 0.5% Ophth Soln 5 ml Bottle EA EYE SCH ×2 (08:13→21:00)
--- NOTE | 2016-04-19 09:16 | PRG ---
DATE OF SERVICE: 04/19/2016 SUBJECTIVE: The patient remains unresponsive. Nurses said on occasion he will open his eyes. He i s not communicative, not able to take any oral nutrition. His lungs have some coarse rales. Heart: Regular rate. The patient was unresponsive during my exam. The patient's condition continues to gradually decline . We will continue comfort measures only.
[2016-04-19] MEDS: Latanoprost 0.005% Ophth Soln 2.5 ml Bottle EA EYE SCH (21:00)
[2016-04-20] MEDS: Timolol 0.5% Ophth Soln 5 ml Bottle EA EYE SCH ×2 (08:55→21:09)
--- NOTE | 2016-04-20 09:43 | PRG ---
DATE OF SERVICE: 04/20/2016 The patient remains unresponsive. He still has apneic episodes. This morning his respirations are much more shallow. He remains unresponsive. His lungs show shallow respirations, with some coarse expiratory breath sounds. Heart, regular rate. The patient appears very comfortable. We will cont inue comfort measures. The patient has not required any medication for pain. His time continues to draw near.
[2016-04-20] MEDS: Latanoprost 0.005% Ophth Soln 2.5 ml Bottle EA EYE SCH (21:10)
[2016-04-21] MEDS: Timolol 0.5% Ophth Soln 5 ml Bottle EA EYE SCH ×2 (08:45→20:41)
--- NOTE | 2016-04-21 11:42 | PRG ---
DATE OF SERVICE: 04/21/2016. HISTORY: The patient is lying in bed with his eyes closed and unresponsive. Mucous membranes mouth and mouth are little dry. His lungs have diffuse coarse, rales present. Heart, regular rate. The patient remained unresponsive throughout examination. The patient's condition of continues to dete riorate, but he appears very comfortable. Continue terminal management, visited with his , Lissa , who is with him and he is thankful for his comfort.
[2016-04-21] MEDS: Latanoprost 0.005% Ophth Soln 2.5 ml Bottle EA EYE SCH (20:40)
[2016-04-22] MEDS: Timolol 0.5% Ophth Soln 5 ml Bottle EA EYE SCH ×2 (08:56→21:33)
[2016-04-22] MEDS: Morphine Sulfate 10 mg/0.5 ml Oral Syringe SL PRN ×2 (12:29→21:27)
[2016-04-22 19:33] VITALS: BP 65/41
[2016-04-22] MEDS: Latanoprost 0.005% Ophth Soln 2.5 ml Bottle EA EYE SCH (21:33)
[2016-04-23 00:27] VITALS: TEMP 99.4
[2016-04-23] MEDS: Timolol 0.5% Ophth Soln 5 ml Bottle EA EYE SCH (09:13)
--- NOTE | 2016-04-24 09:09 | DS ---
DATE OF EXPIRATION: 04/23/2016 FINAL DIAGNOSES: 1. Urinary tract infection. A. Presenting with alteration in mental status, unresponsive. B. Complicated by dehydration. 2. Dehydration. A: Presenting with prerenal azotemia and hypernatremia B. Complicated by unresponsiveness. 3. Decubitus ulcer of the sacral area. A. Stage IV decubitus. B. Secondarily infected. 4. Advanced Parkinson's disease. A. Complicated by generalized weakness and stiffness leaving him bed confined and requiring total care. B. Complicated by Parkinson's dementia. 5. Complicated by severe dysphagia for which the family did not wish any type of enteral feeding. 6. Remained unresponsive. A. Family opted for palliative comfort measures. B. Family did not wish any type of enteral feeding. 7. Hypertension. 8. Coronary heart disease. A. Status post coronary artery bypass x4 in 2008. 9. Bradycardia requiring pacemaker. 10. Diverticular disease of the colon. 11. Benign prostatic hypertrophy. 12. Paget's disease of the pelvic bone. 13. Palliative/comfort care. 14. Code status: DNR. SUMMARY: The patient is an 81-year-old [place] male who has advanced Parkinson's disease complicated by Parkinson's dementia and severe dysphagia for which the family has opted for no enteral feeding. The patient also has hypertension, coronary heart disease and bradycardia for which he has a pacemaker. He resides in the long term where he requires total care and is bed confined. He had developed a stage II decubitus on the sacrum which for a while was gradually improving. His overall condition had been one of decline and for 2 days prior to admission he had just completely quit eating. He became totally unresponsive and was referred to the emergency room on 03/20/2016. There he was found to be severely dehydrated and was hypernatremic, had acute renal failure from prerenal azotemia and had evidence of urinary tract infection. Additionally, the stage II sacral decubitus had very quickly progressed to stage IV decubitus, was necrotic, malodorous, draining and was infected. The patient was admitted to the hospital. There he received initially IV fluids , IV antibiotics. Initially he was placed on Levaquin and vancomycin. The culture from the urine grew E. coli, colony count greater than 100,000. This was resistant to the Levaquin, but sensitive to ceftriaxone. The Levaquin was stopped and he was switched to ceftriaxone and completed a 10-day course of this. His dehydration resolved with the IV hydration with resolution of the prerenal azotemia and resolution of the hypernatremia. The wound gradually cleaned up with wet to dry dressings. The patient was placed on also air flotation mattress. The patient was moved to extended care on 03/24/2016 for continuation of the IV antibiotics and for wound care. During this hospitalization his dehydration resolved. The wound improved, but his mental status did not improve. He had presented unresponsive and he gradually got to where he would open his eyes with verbal or tactile stimulation, but never was communicative and never was able to safely take any oral nutrition or fluids. He was continued on the IV fluids with dextrose. In visiting with the family, they understood his plight and they again reiterated that they did not want any type of enteral feeding. His condition was stable, but with his inability to take in adequate nutrition was gradually declining. Eventually the IV site was lost and another IV site could not be restarted. The family was aware that this would come and it was opted just to continue comfort measures only. Arrangements initially were made for him to return to the long term on 2016 because it was felt it would be financially better for the family. Arrangements were made where Medicare though agreed to step in and pick pack worker his 20% coinsurance days that he was now into for the next 30 days. The family was very happy with this because it would allow continuation of care here in the hospital for his palliative comfort measures. During these last 2 weeks the patient was unable to take any oral nutrition or fluids. His IV site had been out and he remained unresponsive. His condition showed his gradual decline, gradually his respirations slowed and he began having apneic spells. Early on the morning of 04/23/2016 his respirations ceased and the patient . No resuscitative efforts were attempted per patient's DNR. CAUSE OF : Advanced Parkinson's disease with severe dysphagia. [facility]
--- NOTE | 2016-04-27 07:05 | PQF ---
SKYE CAUSEY GROVER MD [id number] CLINICAL DOCUMENTATION CLARIFICATION FORM: POST DISCHARGE PLEASE FAX RESPONSE BACK TO [phone] Addendum to original discharge summary date: ____ Late entry note date: __ DATE: 04/27/16 ATTN: DR. BURDICK The following CLINICAL INDICATORS - SIGNS / SYMPTOMS are present in the medical record: Generalized weakness and stiffness Paget's dx of the bone Decubitus ulcer over sacral- stage 4 Incontinent of urine and stools RISKS: Bed Confined TREATMENTS: Requires total care Please provide a response below if a more specific term indicating a diagnosis and/or acuity level for this condition can be identified. Please exercise your independent, professional judgment in responding to the clarification form. Clinical indicators are provided on the bottom of this form for your review. For continuity of documentation, please document condition throughout progress notes and discharge summary. Thank you. [ ] Present on Admission (POA): [ ] Yes [ ] No [ ] Unable to determine [ ] Functional quadriplegia (complete immobility) * [ ] Immobilization syndrome (impaired mobility) [ ] Does not apply to this patient [ ] Unable to determine [ ] Other diagnosis: *Functional quadriplegia per [facility], 2007 4th quarter: Complete immobility due to physical disability or frailty, or the inability to move due to another underlying condition. _ Physician/Provider Signature Date Time (This form is maintained as a part of the permanent medical record) 2014 [employer] All Rights Reserved [email or web address]
--- NOTE | 2016-04-27 07:30 | PQF ---
SKYE CAUSEY GROVER MD [id number] CLINICAL DOCUMENTATION CLARIFICATION FORM: POST DISCHARGE PLEASE FAX RESPONSE BACK TO [phone] Addendum to original discharge summary date: ____ Late entry note date: __ IF QUERY RECEIVED VIA FAX........ PLEASE DOCUMENT YOUR RESPONSE BELOW FAX RESPONSE BACK TO Query date: 04/27/2016 ATTN: Dr. Torrez Values Commonly Used to Grade the Severity of Protein-Energy Malnutrition Measurement Normal Mild Moderate Severe Normal weight (%) 62774 8590 7585 < 77 Body mass index 1924 1818.9 1617.9 < 16 Serum albumin (g/dL) 3.55.0 3.13.4 2.43.0 < 2.4 Serum transferrin (mg/dL) 115580 457310 670419 < 150 Total lymphocyte count (per mm3) 56804847 03020143 800 1500 < 800 Delayed hypersensitivity index 2 2 1 0 From The Merck Manual of Diagnosis and Therapy, Edition 18, edited by Jerome Lewis. Copyright 2006 by [employer], [place]. Available at : http://www.merck.com/mmpe/sec01/ch002/ro815h.html. Accessed 10/09/06. The following information is documented in the medical record: BMI 19.4 Not eating-family did not want any type of enteral feedings w/PEG tube or nasogastric tube. RISKS: Unresponsive NPO Severe dysphagia Decubitus over sacral- stage 4 Weight loss of 22 lbs since admission TREATMENTS: IV fluids w/Dextrose Swallow Evaluation Nutrition Evaluation Please document the diagnosis that best represents the patients condition, to the most specific degree known or suspected. ___ Cachexia ___ Malnutrition, mild ___ Nutritional Risk ___ Malnutrition, moderate ___ Malnutrition, severe, not otherwise specified ___ Other: ___ Condition not applicable ___ No additional documentation or clarification can be provided. Physician/Provider signature/date/time (This form is maintained as a part of the permanent medical record) 2014 [employer] All Rights Reserved [email or web address]
--- NOTE | 2016-04-27 07:39 | PQF ---
SKYE CAUSEY GROVER MD [id number] CLINICAL DOCUMENTATION CLARIFICATION FORM: POST DISCHARGE PLEASE FAX RESPONSE BACK TO [phone] Addendum to original discharge summary date: ____ Late entry note date: __ DATE: 04/27/2016 ATTN: DR BURDICK The following CLINICAL INDICATORS - SIGNS / SYMPTOMS are present in the medical record: Altered mental status Discharge summary- AMS due to dehydration/UTI/and possible wound infection to decubitus RISKS: Infectious process- UTI and Decubitus wound infection TREATMENTS: IV antibiotics IV fluids Please provide a response below if a more specific term indicating a diagnosis and/or acuity level for this condition can be identified. Please exercise your independent, professional judgment in responding to the clarification form. Clinical indicators are provided at the top of this form for your review. For continuity of documentation, please document condition throughout progress notes and discharge summary. Thank you. [ ] Present on Admission (POA): [ ] Yes [ ] No [ ] Unable to determine [ ] Encephalopathy: Type: [ ] Acute [ ] Subacute [ ] Chronic Etiology: [ ] Hypertensive [ ] Metabolic [ ] Toxic [ ] Toxic Metabolic [ ] Hepatic [ ] Hypoxic [ ] Septic [ ] Alcohol [ ] Drugs (specify) [ ] Post procedural ( specify) Severity: [ ] with coma [ ] without coma [ ] No diagnosis of Encephalopathy [ ] Does not apply to this patient [ ] Unable to determine [ ] Other diagnosis: _ Physician/Provider Signature Date Time (This form is maintained as a part of the permanent medical record) 2014 [employer] All Rights Reserved Nati Hernandez [email or web address]
== END 2016-04-23 08:50 | disposition expired | DRG 689 ==
LOC: MADMS 03-24 14:06
PROVIDERS: ADMIT Family Medicine; ATTEND Family Medicine
DX: N39.0 Urinary tract infection, site not specified (principal); L89.154 Pressure ulcer of sacral region, stage 4; G20 Parkinson's disease; E86.0 Dehydration; R06.81 Apnea, not elsewhere classified; F02.80 Dementia in other diseases classified elsewhere, unspecified severity, without behavioral disturbance, psychotic disturbance, mood disturbance, and anxiety; R13.10 Dysphagia, unspecified; S42.301A Unspecified fracture of shaft of humerus, right arm, initial encounter for closed fracture; B96.20 Unspecified Escherichia coli [E. coli] as the cause of diseases classified elsewhere; Z51.5 Encounter for palliative care; Z66 Do not resuscitate; Z74.01 Bed confinement status; I10 Essential (primary) hypertension; I25.10 Atherosclerotic heart disease of native coronary artery without angina pectoris; Z95.1 Presence of aortocoronary bypass graft; Z95.0 Presence of cardiac pacemaker; K57.90 Diverticulosis of intestine, part unspecified, without perforation or abscess without bleeding; N40.0 Benign prostatic hyperplasia without lower urinary tract symptoms; M88.9 Osteitis deformans of unspecified bone; X58.XXXA Exposure to other specified factors, initial encounter
CPT/HCPCS: 36415; 80048; 80202; 85025; A4216; G8996-GN-CN; G8997-GN-CN; G8998-GN-CN; J0696; J1650; J3370; J7042; J7050